=== PATIENT | female | born 1980 | race American Indian/Alaskan Native ===

== ENCOUNTER 2019-04-18 11:40 | Observation (INO) | payer MEDICAID ==
--- NOTE | 2019-04-18 14:39 | Ultrasound Report ---
PROCEDURE: US OB LIMITED TECHNIQUE: Limited OB ultrasound was performed. HISTORY: nrnst, steve COMPARISONS: None. FINDINGS: A single live intrauterine fetus is present in cephalic presentation. cardiac activity was dete cted at 135 bpm. Amniotic fluid index is 7.4 cm. IMPRESSION: Amniotic fluid index of 7.4 cm. This document is electronically signed by Jacinda Garay., Apr 18 2019 02:37:42 PM ET
--- NOTE | 2019-04-18 14:41 | Ultrasound Report ---
PROCEDURE: US OB BPP WO NON-STRESS TECHNIQUE: Biophysical profile was performed. HISTORY: nrnst COMPARISONS: None. FINDINGS: Normal biophysical profile score of 8 out of 8 was noted. Scores of 2 out of 2 were given for b reathing movements, movements, posture and tone and qualitative amniotic fluid volume. Fe santiago heart rate was detected at 137 bpm. IMPRESSION: Normal biophysical profile. This document is electronically signed by Jacinda Garay., Apr 18 2019 02:39:04 PM ET
[2019-04-18] MEDS ORDERED: LACTATED RINGERS 500 ML IV ONE ×2 (15:08→16:00)
--- NOTE | 2019-04-18 15:21 | Event Note ---
Date: 04/18/19 Pt sent from office due to non reactive nst in the office. There were several episodes of bp in the severe range. Will admit at this time 24hr urine collection, BMX, MgSO4 for neuro protection. BP currently is in normal range. Will con't to monitor at this time.
[2019-04-18 15:56] LABS: Bacteria,Urine 1+ /HPF (Negative); Bilirubin,Urine NEG (Negative); Blood,Urine SM (Negative); Color,Urine Straw (Yellow); Protein,Urine <15 mg/dL mg/dL (Negative); Urobilinogen,Urine < 2.0 mg/dL (<2.0)
[2019-04-18 17:43] LABS: Hemoglobin 10.7 gm/dl (10.1-14.3); Mean Corpuscular HGB Conc 34 % (30-34); Mean Corpuscular Volume 92 fl (79-97); Platelet Count 289 K/mm3 (140-440); Red Blood Count 3.46 M/mm3 (3.65-5.03); Red Cell Distribution Width 14.5 % (13.2-15.2)
[2019-04-18] MEDS: MAGNESIUM SULFATE 40GM/1000ML 40 GM/1,000 ML BAG IV SCH (17:50)
[2019-04-18] MEDS: CELESTONE SOLUSPAN IM SCH (17:55)
[2019-04-18 17:59] LABS: Alanine Aminotransferase 17 units/L (7-56)
[2019-04-18 19:31] LABS: Uric Acid 3.6 mg/dL (3.5-7.6)
[2019-04-18] MEDS ORDERED: APRESOLINE IV ONE (20:06)
[2019-04-18] MEDS: NORMODYNE PO SCH (21:37)
--- NOTE | 2019-04-18 22:29 | History and Physical Report ---
History of Present Illness Date of examination: 04/18/19 Date of admission: 04/18/19 17:35 Chief complaint: sent from office d/t NRNST, order from Dr. Thomas for BPP ARTI. History of present illness: Menstrual History Regularity: regular Duration: 7 LMP: 08/28/2018 LMP reliability: month known LMP character: normal test type: urine test Date: 10/17/2018 BC at conception: none Planned ? no EDC Calculations LMP: 06/04/2019 EDC Confirmation: 06/04/2019 Gestational Age: 7 1/7 weeks Past History : 5 Term Births: 3 Living Children: 2 Para: 3 Prev : 1 Aborta: 1 Elect. Ab: 0 Spont. Ab: 1 Ectopics: 0 # 1 Delivery date: 04/27/2007 Weeks Gestation: 37.6 Delivery type: Delivery location: [facility] Sex: Male weight: 4-12 Name: Comments: Dextrocardia, 2 surgeries- passed 8 months # 2 Delivery date: 06/14/2008 Weeks Gestation: 38 Delivery type: Delivery location: [facility] Sex: Female weight: 5-2 Name: # 3 Delivery date: 10/2014 Weeks Gestation: early Delivery type: SAB Comments: cytotec at home # 4 Delivery date: 03/25/2016 Weeks Gestation: 37 Delivery type: Anesthesia type: epidural Delivery location: [facility] Sex: male Comments: pre-eclampsia/eclampsia Past Medical History: HTN- on meds Past Surgical History: 2015 Past Medical History Surgery (Non-dye tank tender): 2016 Abnormal PAP: positive, > 5 years ago 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 Patient has been counseled to quit. Infection History Hx of STD: none HIV Risk Eval: low risk Hepatitis B Risk Eval: low risk Personal hx. of genital herpes: yes Partner hx. of genital herpes: no Rash, Viral, or Febrile illness since last LMP? no Varicella/Chicken Pox Status: Previous Disease Genetic History ADVANCED MATERNAL AGE Congenital Heart Defect: Mom: no Dad: no Oralia Disease: Mom: no Dad: no Thalassemia Mom: no Dad: no Neural Tube Defect Mom: no Dad: no Down's Syndrome Mom: no Dad: no Vinicio-Sachs Mom: no Dad: no Sickle Cell Disease/Trait Mom: no Dad: no Hemophilia Mom: no Dad: no Muscular Dystrophy Mom: no Dad: no Cystic Fibrosis Mom: no Dad: no Cunningham Chorea Mom: no Dad: no Mental Retardation Mom: no Dad: no Fragile X Mom: no Dad: no Other Genetic/Chromosomal Disorder Mom: no Dad: no Child w/other defect Mom: no Dad: no Enviromental Exposures Xray Exposure: no Medication, drug, or alcohol use since LMP: no Chemical/Other Exposure: no Exposure to Cat Liter: no Hx of Parvovirus (Fifth Disease): no Occupational Exposure to Children: none Active Medications (reviewed today): PROCARDIA XL 30 MG ORAL TABLET EXTENDED RELEASE 24 HOUR (NIFEDIPINE) one po q day LABETALOL HCL 300 MG ORAL TABS (LABETALOL HCL) () one po bid PRE-CHRISTIANO TABS ( [id number]) T1 PO QD Current Allergies (reviewed today): No known allergies Past History Past Medical History: other (see HPI) Past Surgical History: other (see HPI) 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) Family/Genetic History: other (see HPI) Social history: other (see HPI) - Obstetrical History Expected Date of Delivery: 06/04/19 Actual Gestation: 33 Week(s) 3 Day(s) : 5 Para: 3 Medications and Allergies Allergies Allergy/AdvReac Type Severity Reaction Status Date / Time No Known Allergies Allergy Verified 02/26/16 11:46 Home Medications Medication Instructions Recorded Confirmed Last Taken Type Labetalol HCl 200 mg PO BID 02/26/16 03/23/16 03/23/16 07:30 History valACYclovir [Valtrex] 500 mg PO QDAY 03/23/16 03/23/16 03/22/16 22:30 History Ibuprofen [Motrin] 800 mg PO Q8HR PRN #30 tablet 03/25/16 Unknown Rx Lidocain2.5%/Prilocai2.5% [Emla] 1 applic TP ONCE #1 tube 03/25/16 Unknown Rx oxyCODONE /ACETAMINOPHEN [Percocet 2 tab PO Q4HR PRN #30 tab 03/25/16 Unknown Rx 5/325] Labetalol [Labetalol 200mg TAB] 300 mg PO BID #60 tablet 03/28/16 Unknown Rx Active Meds: Active Medications Betamethasone Acet/Betameth SodPhos (Celestone Soluspan) 12 mg IM Q24H [facility] Stop: 04/19/19 17:01 Last Admin: 04/18/19 17:55 Dose: 12 mg Documented by: Magnesium Sulfate (Magnesium Sulfate 40gm/1000ml) 40 gm in 1,000 mls @ 50 mls/ hr IV DIRECT ERNESTO Last Admin: 04/18/19 17:50 Dose: 2 gm/hr, 50 mls/hr Documented by: Labetalol HCl (Normodyne) 600 mg PO BID [facility] Last Admin: 04/18/19 21:37 Dose: 600 mg Documented by: Review of Systems All systems: negative - Vital Signs Vital signs: Vital Signs Pulse BP 82 131/93 04/18/19 12:05 04/18/19 12:05 Temp Pulse Resp BP Pulse Ox 97.2 F L 105 H 18 165/79 98 04/18/19 19:15 04/18/19 22:23 04/18/19 19:15 04/18/19 22:13 04/18/19 22:23 Results Result Diagrams: 04/18/19 16:44 04/18/19 16:44 Abnormal lab results 04/18/19 04/18/19 04/18/19 Range/Units 15:30 16:44 16:44 RBC 3.46 L (3.65-5.03) M/mm3 Creatinine 0.5 L (0.7-1.2) mg/dL Magnesium (1.7-2.3) mg/dL Urine WBC (Auto) 9.0 H (0.0-6.0) /HPF 04/18/19 Range/Units 16:44 RBC (3.65-5.03) M/mm3 Creatinine (0.7-1.2) mg/dL Magnesium 1.50 L (1.7-2.3) mg/dL Urine WBC (Auto) (0.0-6.0) /HPF All other labs normal. Assessment and Plan Patient sent from office d/t NRNST for BPP ARTI US. Elevated BPs noted in triage. Dr. Thomas aware, orders for PIH labs, 24 hr urine, mag, steroids. Will continue to monitor.
[2019-04-19] MEDS ORDERED: LACTATED RINGERS 1,000 ML ONE (06:33)
--- NOTE | 2019-04-19 07:20 | Progress Note ---
Assessment and Plan - Patient Problems (1) 33 weeks gestation of Onset Date: ~04/19/19 Current Visit: Yes Status: Acute Plan to address problem: pt resting no c/o voiced 130/70-80 24hr urine ongoing Will complete today 1440. BMZ second dose due @ 1915 MGSO4 2gm/hr Will continue POC. aware Close observation of status (2) Antepartum non-reassuring heart rate or rhythm affecting care of mother Onset Date: ~04/18/19 Current Visit: Yes Status: Acute Plan to address problem: Non-reactive NST in office Pt sent to L&D for continued monitoring and assessment. Subjective - Subjective Date of service: 04/19/19 (pt awake Pt makes observation that her BPs go up when she eats) Principal diagnosis: [id number] Nonreassuring testing in office; CHtn; Prev C/S; GBS+ Patient reports: movement normal Objective - Vital Signs Vital Signs: Vital Signs - 12hr 04/18/19 04/18/19 04/18/19 19:28 19:43 19:58 Temperature Pulse Rate 99 H 104 H Respiratory Rate Blood Pressure 154/86 145/71 158/76 O2 Sat by Pulse Oximetry 04/18/19 04/18/19 04/18/19 20:02 20:04 20:06 Temperature Pulse Rate 107 H 105 H 102 H Respiratory Rate Blood Pressure 173/75 165/84 O2 Sat by Pulse 98 92 Oximetry 04/18/19 04/18/19 04/18/19 20:07 20:12 20:17 Temperature Pulse Rate 109 H 109 H 107 H Respiratory Rate Blood Pressure O2 Sat by Pulse 99 100 100 Oximetry 04/18/19 04/18/19 04/18/19 20:22 20:23 20:27 Temperature Pulse Rate 103 H 30 L 108 H Respiratory Rate Blood Pressure O2 Sat by Pulse 100 84 100 Oximetry 04/18/19 04/18/19 04/18/19 20:28 20:32 20:37 Temperature Pulse Rate 103 H 102 H 114 H Respiratory Rate Blood Pressure 166/81 O2 Sat by Pulse 99 97 Oximetry 04/18/19 04/18/19 04/18/19 20:42 20:43 20:47 Temperature Pulse Rate 113 H 101 H 107 H Respiratory Rate Blood Pressure 160/72 O2 Sat by Pulse 97 97 Oximetry 04/18/19 04/18/19 04/18/19 20:52 20:53 20:58 Temperature Pulse Rate 60 106 H 107 H Respiratory Rate Blood Pressure O2 Sat by Pulse 76 L 99 98 Oximetry 04/18/19 04/18/19 04/18/19 20:59 21:03 21:08 Temperature Pulse Rate 105 H 102 H 109 H Respiratory Rate Blood Pressure 171/91 O2 Sat by Pulse 98 96 Oximetry 04/18/19 04/18/19 04/18/19 21:13 21:18 21:23 Temperature Pulse Rate 111 H 104 H 104 H Respiratory Rate Blood Pressure 168/88 O2 Sat by Pulse 97 97 96 Oximetry 04/18/19 04/18/19 04/18/19 21:28 21:31 21:33 Temperature Pulse Rate 107 H 102 H 111 H Respiratory Rate Blood Pressure 170/87 O2 Sat by Pulse 96 92 97 Oximetry 04/18/19 04/18/19 04/18/19 21:37 21:38 21:43 Temperature Pulse Rate 103 H 108 H 110 H Respiratory Rate Blood Pressure 170/87 166/80 O2 Sat by Pulse 98 98 Oximetry 04/18/19 04/18/19 04/18/19 21:48 21:53 21:58 Temperature Pulse Rate 103 H 100 H 103 H Respiratory Rate Blood Pressure 160/78 O2 Sat by Pulse 97 98 97 Oximetry 04/18/19 04/18/19 04/18/19 22:03 22:07 22:08 Temperature Pulse Rate 104 H 105 H 107 H Respiratory Rate Blood Pressure O2 Sat by Pulse 97 78 L 97 Oximetry 04/18/19 04/18/19 04/18/19 22:13 22:18 22:19 Temperature Pulse Rate 105 H 109 H 114 H Respiratory Rate Blood Pressure 165/79 O2 Sat by Pulse 96 98 0 L Oximetry 04/18/19 04/18/19 04/18/19 22:23 22:28 22:33 Temperature Pulse Rate 105 H 102 H 104 H Respiratory Rate Blood Pressure 144/69 O2 Sat by Pulse 98 96 98 Oximetry 04/18/19 04/18/19 04/18/19 22:34 22:38 22:43 Temperature Pulse Rate 110 H 99 H 99 H Respiratory Rate Blood Pressure 136/71 O2 Sat by Pulse 93 98 96 Oximetry 04/18/19 04/18/19 04/18/19 22:44 22:48 22:53 Temperature 98.4 F Pulse Rate 97 H 99 H Respiratory 20 Rate Blood Pressure O2 Sat by Pulse 98 98 Oximetry 04/18/19 04/18/19 04/18/19 22:58 23:03 23:08 Temperature Pulse Rate 108 H 97 H 97 H Respiratory Rate Blood Pressure 130/63 O2 Sat by Pulse 97 97 97 Oximetry 04/18/19 04/18/19 04/18/19 23:13 23:18 23:23 Temperature Pulse Rate 101 H 97 H 95 H Respiratory Rate Blood Pressure 135/82 O2 Sat by Pulse 95 97 96 Oximetry 04/18/19 04/18/19 04/18/19 23:28 23:33 23:38 Temperature Pulse Rate 98 H 91 H 92 H Respiratory Rate Blood Pressure 132/80 O2 Sat by Pulse 96 97 97 Oximetry 04/18/19 04/18/19 04/18/19 23:43 23:48 23:53 Temperature Pulse Rate 95 H 93 H 91 H Respiratory Rate Blood Pressure 130/83 O2 Sat by Pulse 97 97 96 Oximetry 04/18/19 04/18/19 04/19/19 23:56 23:58 00:03 Temperature Pulse Rate 95 H 88 91 H Respiratory Rate Blood Pressure 131/84 O2 Sat by Pulse 94 95 96 Oximetry 04/19/19 04/19/19 04/19/19 00:08 00:10 00:13 Temperature Pulse Rate 91 H 90 88 Respiratory Rate Blood Pressure O2 Sat by Pulse 94 93 94 Oximetry 04/19/19 04/19/19 04/19/19 00:18 00:23 00:24 Temperature Pulse Rate 89 89 86 Respiratory Rate Blood Pressure O2 Sat by Pulse 96 94 94 Oximetry 04/19/19 04/19/19 04/19/19 00:28 00:30 00:33 Temperature Pulse Rate 85 93 H 85 Respiratory Rate Blood Pressure O2 Sat by Pulse 96 90 97 Oximetry 04/19/19 04/19/19 04/19/19 00:35 00:38 00:41 Temperature Pulse Rate 92 H 90 99 H Respiratory Rate Blood Pressure O2 Sat by Pulse 88 91 92 Oximetry 04/19/19 04/19/19 04/19/19 00:43 00:47 00:48 Temperature Pulse Rate 90 93 H 96 H Respiratory Rate Blood Pressure O2 Sat by Pulse 98 93 95 Oximetry 04/19/19 04/19/19 04/19/19 00:53 00:58 01:12 Temperature Pulse Rate 88 100 H 94 H Respiratory Rate Blood Pressure 124/67 O2 Sat by Pulse 95 96 Oximetry 04/19/19 04/19/19 04/19/19 01:13 02:12 03:12 Temperature Pulse Rate 95 H 90 99 H Respiratory Rate Blood Pressure 119/59 130/71 O2 Sat by Pulse 97 Oximetry 04/19/19 04/19/19 04/19/19 03:35 05:20 06:46 Temperature 98.2 F Pulse Rate 85 90 Respiratory 20 Rate Blood Pressure 139/89 O2 Sat by Pulse 98 Oximetry 04/19/19 04/19/19 04/19/19 06:54 06:59 07:01 Temperature Pulse Rate 87 89 92 H Respiratory Rate Blood Pressure O2 Sat by Pulse 99 96 94 Oximetry 04/19/19 04/19/19 07:04 07:09 Temperature Pulse Rate 85 91 H Respiratory Rate Blood Pressure O2 Sat by Pulse 96 96 Oximetry - Exam Breasts: deferred Cardiovascular: Regular rate Lungs: Normal air movement Abdomen: Present: normal appearance, soft, normal bowel sounds. Absent: distention, tenderness Uterus: Present: normal FHR: auscultation normal, category 1 Uterine Contraction Monitor Mode: External Uterine Contraction Pattern: Irregular (mild) Uterine Tone Measurement Phase: Resting Uterine Contraction Intensity: Mild Extremities: edema Deep Tendon Reflex Grade: Normal +2 - Labs Labs: Abnormal Labs 04/18/19 04/18/19 04/18/19 15:30 16:44 16:44 RBC 3.46 L Creatinine 0.5 L Magnesium Urine WBC (Auto) 9.0 H 04/18/19 04/19/19 04/19/19 16:44 00:18 05:37 RBC Creatinine Magnesium 1.50 L 3.80 H 4.50 H Urine WBC (Auto) Laboratory Results - last 24 hr 04/18/19 04/18/19 04/18/19 15:30 16:44 16:44 WBC 10.7 RBC 3.46 L Hgb 10.7 Hct 32.0 MCV 92 MCH 31 MCHC 34 RDW 14.5 Plt Count 289 Creatinine 0.5 L Estimated GFR > 60 Uric Acid 3.6 Magnesium ALT 17 Lactate Dehydrogenase 179 Urine Color Straw Urine Turbidity Clear Urine pH 7.0 Ur Specific [place] 1.008 Urine Protein <15 mg/dl Urine Glucose (UA) Neg Urine Ketones Neg Urine Blood Sm Urine Nitrite Neg Urine Bilirubin Neg Urine Urobilinogen < 2.0 Ur Leukocyte Esterase Mod Urine WBC (Auto) 9.0 H Urine RBC (Auto) 3.0 U Epithel Cells (Auto) 1.0 Urine Bacteria (Auto) 1+ Blood Type Antibody Screen TAI Antibody Screen 04/18/19 04/18/19 04/19/19 16:44 17:30 00:18 WBC RBC Hgb Hct MCV MCH MCHC RDW Plt Count Creatinine Estimated GFR Uric Acid Magnesium 1.50 L 3.80 H ALT Lactate Dehydrogenase Urine Color Urine Turbidity Urine pH Ur Specific [place] Urine Protein Urine Glucose (UA) Urine Ketones Urine Blood Urine Nitrite Urine Bilirubin Urine Urobilinogen Ur Leukocyte Esterase Urine WBC (Auto) Urine RBC (Auto) U Epithel Cells (Auto) Urine Bacteria (Auto) Blood Type O POSITIVE Antibody Screen TNR TAI Antibody Screen Negative 04/19/19 05:37 WBC RBC Hgb Hct MCV MCH MCHC RDW Plt Count Creatinine Estimated GFR Uric Acid Magnesium 4.50 H ALT Lactate Dehydrogenase Urine Color Urine Turbidity Urine pH Ur Specific [place] Urine Protein Urine Glucose (UA) Urine Ketones Urine Blood Urine Nitrite Urine Bilirubin Urine Urobilinogen Ur Leukocyte Esterase Urine WBC (Auto) Urine RBC (Auto) U Epithel Cells (Auto) Urine Bacteria (Auto) Blood Type Antibody Screen TAI Antibody Screen
[2019-04-19 08:37] LABS: Bilirubin,Urine NEG (Negative); Blood,Urine LG (Negative); Color,Urine Straw (Yellow); Mucus,Urine FEW /HPF; Protein,Urine <15 mg/dL mg/dL (Negative); Urobilinogen,Urine < 2.0 mg/dL (<2.0)
[2019-04-19 08:38] LABS: RBC,Urine < 1.0 /HPF (0.0-6.0)
[2019-04-19] MEDS: NORMODYNE PO SCH (10:15)
[2019-04-19] MEDS: MAGNESIUM SULFATE 40GM/1000ML 40 GM/1,000 ML BAG IV SCH (11:18)
[2019-04-19] MEDS ORDERED: TYLENOL PO PRN (12:05)
[2019-04-19] MEDS ORDERED: TYLENOL ONE (12:15)
[2019-04-19] MEDS: CELESTONE SOLUSPAN IM SCH (18:01)
[2019-04-19 20:09] VITALS: BP 155/93
--- NOTE | 2019-04-19 20:10 | Discharge Summary ---
Providers - Providers Date of Admission: 04/18/19 17:35 Date of discharge: 04/19/19 (pt d/c home after BP eval) Attending physician: CONNIE LEDESMA Primary care physician: CONNIE LEDESMA Hospitalization Condition: Good Pertinent studies: wasted 24hr urine Pt will collect at home and return to Triage Tuesday Disposition: DC-01 TO HOME OR SELFCARE - Discharge Diagnoses (1) 33 weeks gestation of Status: Acute Comment: Keep next scheduled appt (2) Antepartum non-reassuring heart rate or rhythm affecting care of mother Status: Acute Comment: All testing WNL Reactive NST prior to d/c Core Measure Documentation - Palliative Care Palliative Care/ Comfort Measures: Not Applicable - Core Measures Any of the following diagnoses?: none - VTE Discharge Requirements Deep Vein Thrombosis/Pulmonary Embolism Present on Admission: No Has pt received <5 days of overlap therapy or INR<2.0: No Anticoagulant overlap therapy prescribed at discharge: No Contraindication No Overlap Therapy order at DC: Not Indicated - Acute [place] Discharge Requirements Aspirin at discharge: No Reason for no aspirin on DC: Medical contraindication DUNCAN/ARB for LVSD if EF <40%: Not Applicable Reason for no DUNCAN/ARB: Medical contraindication Beta jim at discharge: No Reason for no beta jim on DC: Medical contraindication Statin for LDL = or >100 mg/dl on DC: Not Applicable Reason for no statin on DC: Medical contraindication - Heart Failure Discharge Requirements DUNCAN/ARB for LVSD if EF <40%: Not Applicable Reason for no DUNCAN/ARB: Medical contraindication Beta jim at discharge: No Reason for no beta jim on DC: Medical contraindication - Stroke Discharge Requirements Statin for LDL = or >70 mg/dl on DC: Not Applicable Reason for no statin on DC: Not Indicated Anticoag for atrial fib/atrial flutter: Not Applicable Reason for no anticoag for AF/F on DC: Not Indicated Antithrombotic for ischemic stroke: No Reason for no antithrombotic on DC: Not Indicated Exam - Constitutional Vitals: Temp Pulse Resp BP Pulse Ox 98.7 F 88 32 H 162/90 99 04/19/19 16:50 04/19/19 19:50 04/19/19 16:50 04/19/19 19:50 04/19/19 18:20 General appearance: Present: no acute distress, well-nourished - EENT Eyes: Present: PERRL ENT: hearing intact, clear oral mucosa - Neck Neck: Present: supple, normal ROM - Respiratory Respiratory effort: normal Respiratory: bilateral: CTA - Cardiovascular Heart Sounds: Present: S1 & S2. Absent: rub, click - Extremities Extremities: pulses symmetrical, No edema Peripheral Pulses: within normal limits - Abdominal General gastrointestinal: Present: soft, non-tender, non-distended, normal bowel sounds Female genitourinary: Present: normal - Integumentary Integumentary: Present: clear, warm, dry - Musculoskeletal Musculoskeletal: gait normal, strength equal bilaterally - Psychiatric Psychiatric: appropriate mood/affect, intact judgment & insight - Neurologic Neurologic: CNII-XII intact, moves all extremities Plan Activity: advance as tolerated Diet: low salt Follow up with: CONNIE LEDESMA MD [Primary Care Provider] - 04/21/19 9:00 am (Return 24hr urine to Triage on Tuesday for labs, blood pressure check, and NST Call [phone] with any headache, blurred vision, chest pain.) Prescriptions: Terconazole [Terazol 7] 7 applic VG QHS 7 Days #7 cream.[email or web address]
[2019-04-21 16:25] LABS: Creatinine,Urine 39.3 mg/dL (0.1-20.0)
== END 2019-04-19 09:00 | disposition home or self-care (01) ==
LOC: TRG 11:40 → LD 17:35
PROVIDERS: ADMIT Obstetrics & Gynecology; ATTEND Obstetrics & Gynecology
DX: O36.8330 Maternal care for abnormalities of the fetal heart rate or rhythm, third trimester, not applicable or unspecified (principal); Z3A.33 33 weeks gestation of pregnancy; Z87.891 Personal history of nicotine dependence; Z98.890 Other specified postprocedural states
CPT/HCPCS: 36415; 76815; 76819; 81001; 82565; 82570; 82575; 83615; 83735; 84460; 84550; 85027; 86850; 86900; 86901; 87086; 96365; 96366; 96372; 96375; G0378; J0360; J0702; J3475; J7120

== ENCOUNTER 2019-04-21 11:37 | Outpatient (CLI) | payer MEDICAID ==
[2019-04-21 16:09] VITALS: BP 137/87
--- NOTE | 2019-04-21 16:30 | Ultrasound Report ---
PROCEDURE: Ultrasound biophysical profile without nonstress test. TECHNIQUE: Sonographic evaluation for breathing, movement, tone, and amniotic flui d volume was performed. HISTORY: Nonreactive nonstress test. COMPARISONS: None. FINDINGS: FETUS Amniotic fluid volume 2 . breathin . movement: 2 . tone: 2 . Score: 8 of 8 . IMPRESSION: Normal biophysical profile . This document is electronically signed by Adeel Nunez MD., April 21 2019 05:28:54 PM ET
== END 2019-04-21 16:15 | disposition home or self-care (01) ==
LOC: TRG 11:37
PROVIDERS: ATTEND Obstetrics & Gynecology
DX: O47.03 False labor before 37 completed weeks of gestation, third trimester (principal); O10.013 Pre-existing essential hypertension complicating pregnancy, third trimester; Z3A.33 33 weeks gestation of pregnancy
CPT/HCPCS: 59025; 76819; 84156

== ENCOUNTER 2019-04-27 13:06 | Outpatient (CLI) | payer MEDICAID ==
[2019-04-27] MEDS ORDERED: LACTATED RINGERS 500 ML IV ONE (14:00)
[2019-04-27 14:27] LABS: Bilirubin,Urine NEG (Negative); Blood,Urine SM (Negative); Color,Urine Yellow (Yellow); Protein,Urine <15 mg/dL mg/dL (Negative); Urobilinogen,Urine < 2.0 mg/dL (<2.0)
[2019-04-27 14:30] LABS: Bacteria,Urine 3+ /HPF (Negative); Mucus,Urine FEW /HPF
[2019-04-27 15:01] VITALS: BP 132/88
--- NOTE | 2019-04-27 16:08 | Ultrasound Report ---
PROCEDURE: US OB LIMITED PROCEDURE: US OB BPP WO NON-STRESS TECHNIQUE: OB ultrasound for BPP and ARTI HISTORY: nrnst in office COMPARISONS: Ultrasound OB 04/21/2019 FINDINGS: LMP 08/28/2018 clinical Age : 34W 4 D LMP EDC 06/04/2019 Biophysical profile scoring 2 movement 2 tone 2 breathing 2fluid 8/8 overall score Presentation: Cephalic Activity: Monitored Cardiac motion: 155 BPM using M-mode doppler Amniotic Fluid Volume: Adequate ARTI: 14.8 cm IMPRESSION: Single viable at 34 weeks 4 days with 8/8 biophysical profile score with ARIT 14.8 cm This document is electronically signed by Mis Carroll MD., April 27 2019 04:06:19 PM ET
--- NOTE | 2019-04-27 16:08 | Ultrasound Report ---
PROCEDURE: US OB BPP WO NON-STRESS TECHNIQUE: OB ultrasound for BPP and ARTI HISTORY: nrnst in office COMPARISONS: Ultrasound OB 04/21/2019 FINDINGS: LMP 08/28/2018 clinical Age : 34W 4 D LMP EDC 06/04/2019 Biophysical profile scoring 2 movement 2 tone 2 breathing 2fluid 8/8 overall score Presentation: Cephalic Activity: Monitored Cardiac motion: 155 BPM using M-mode doppler Amniotic Fluid Volume: Adequate ARTI: 14.8 cm IMPRESSION: Single viable at 34 weeks 4 days with 8/8 biophysical profile score with ARTI 14.8 cm This document is electronically signed by Mis Carroll MD., April 27 2019 04:06:48 PM ET
== END 2019-04-27 16:26 | disposition home or self-care (01) ==
LOC: TRG 13:06
PROVIDERS: ATTEND Obstetrics & Gynecology
DX: O47.03 False labor before 37 completed weeks of gestation, third trimester (principal); Z3A.34 34 weeks gestation of pregnancy
CPT/HCPCS: 59025; 76815; 76819; 81001; 87086

== ENCOUNTER 2019-05-04 12:44 | Outpatient (CLI) | payer MEDICAID ==
[2019-05-04] MEDS ORDERED: LACTATED RINGERS 500 ML IV ONE (13:06)
[2019-05-04 14:04] LABS: Bacteria,Urine 2+ /HPF (Negative); Bilirubin,Urine NEG (Negative); Blood,Urine NEG (Negative); Color,Urine Yellow (Yellow); Mucus,Urine FEW /HPF; Protein,Urine <15 mg/dL mg/dL (Negative); Urobilinogen,Urine < 2.0 mg/dL (<2.0)
[2019-05-04 14:52] VITALS: BP 138/81
[2019-05-04 16:23] LABS: Hematocrit 32.5 % (30.3-42.9); Mean Corpuscular HGB Conc 34 % (30-34); Mean Corpuscular Volume 93 fl (79-97); Platelet Count 232 K/mm3 (140-440); Red Blood Count 3.47 M/mm3 (3.65-5.03); Red Cell Distribution Width 15.4 % (13.2-15.2)
[2019-05-04 16:39] LABS: Alanine Aminotransferase 14 units/L (7-56); Uric Acid 3.4 mg/dL (3.5-7.6)
--- NOTE | 2019-05-04 17:13 | Ultrasound Report ---
PROCEDURE: US OB BPP WO NON-STRESS TECHNIQUE: Ultrasound biophysical profile HISTORY: nrnst in office COMPARISONS: FINDINGS: Biophysical profile breathing 2. limits to Tone 2 Amniotic fluid volume 2 Total biophysical profile 06/28 cardiac activity present at 143 bpm IMPRESSION: Total biophysical profile 06/28. This document is electronically signed by Yair Lindsay MD., May 04 2019 05:11:42 PM ET
--- NOTE | 2019-05-04 17:19 | Ultrasound Report ---
PROCEDURE: US OB LIMITED TECHNIQUE: Ultrasound obstetrical transabdominal and limited HISTORY: nrnst in office COMPARISONS: FINDINGS: Single live intrauterine gestation present in cephalic presentation Amniotic fluid index is 19.1 cm cardiac activity present heart rate 1 37 bpm IMPRESSION: Single live intrauterine gestation in cephalic presentation This document is electronically signed by Yair Lindsay MD., May 04 2019 05:17:19 PM ET
== END 2019-05-04 16:46 | disposition home or self-care (01) ==
LOC: TRG 12:44
PROVIDERS: ATTEND Obstetrics & Gynecology
DX: O47.03 False labor before 37 completed weeks of gestation, third trimester (principal); O10.013 Pre-existing essential hypertension complicating pregnancy, third trimester; Z3A.35 35 weeks gestation of pregnancy
CPT/HCPCS: 36415; 59025; 76815; 76819; 81001; 82565; 83615; 84450; 84460; 84550; 85027; 87086

== ENCOUNTER 2019-05-22 13:40 | Inpatient (IN) | payer MEDICAID ==
[2019-05-22] MEDS ORDERED: BICITRA PO ONE (13:46)
[2019-05-22] MEDS ORDERED: REGLAN IV ONE (13:46)
[2019-05-22] MEDS ORDERED: PEPCID IV ONE (13:46)
--- NOTE | 2019-05-22 13:55 | History and Physical Report ---
History of Present Illness Date of examination: 05/22/19 Date of admission: 05/22/19 13:40 History of present illness: EDC Calculations LMP: 06/04/2019 EDC Confirmation: 06/04/2019 Gestational Age: 7 1/7 weeks Past History : 5 Term Births: 3 Living Children: 2 Para: 3 Prev : 1 Aborta: 1 Elect. Ab: 0 Spont. Ab: 1 Ectopics: 0 # 1 Delivery date: 04/27/2007 Weeks Gestation: 37.6 Delivery type: Delivery location: [facility] Sex: Male weight: 4-12 Name: Comments: Dextrocardia, 2 surgeries- passed 8 months # 2 Delivery date: 06/14/2008 Weeks Gestation: 38 Delivery type: Delivery location: [facility] Infant Sex: Female weight: 5-2 Name: # 3 Delivery date: 10/2014 Weeks Gestation: early Delivery type: SAB Comments: cytotec at home # 4 Delivery date: 03/25/2016 Weeks Gestation: 37 Delivery type: Anesthesia type: epidural Delivery location: [facility] Sex: male Comments: pre-eclampsia/eclampsia Past Medical History: HTN- on meds Past Surgical History: 2015 Past Medical History 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 Patient has been counseled to quit. Infection History Hx of STD: none HIV Risk Eval: low risk Hepatitis B Risk Eval: low risk Personal hx. of genital herpes: yes Partner hx. of genital herpes: no Rash, Viral, or Febrile illness since last LMP? no Varicella/Chicken Pox Status: Previous Disease Genetic History ADVANCED MATERNAL AGE Congenital Heart Defect: Mom: no Dad: no Oralia Disease: Mom: no Dad: no Thalassemia Mom: no Dad: no Neural Tube Defect Mom: no Dad: no Down's Syndrome Mom: no Dad: no Vinicio-Sachs Mom: no Dad: no Sickle Cell Disease/Trait Mom: no Dad: no Hemophilia Mom: no Dad: no Muscular Dystrophy Mom: no Dad: no Cystic Fibrosis Mom: no Dad: no Bullitt Chorea Mom: no Dad: no Mental Retardation Mom: no Dad: no Fragile X Mom: no Dad: no Other Genetic/Chromosomal Disorder Mom: no Dad: no Child w/other defect Mom: no Dad: no Enviromental Exposures Xray Exposure: no Medication, drug, or alcohol use since LMP: no Chemical/Other Exposure: no Exposure to Cat Liter: no Hx of Parvovirus (Fifth Disease): no Occupational Exposure to Children: none Active Medications (reviewed today): LABETALOL HCL 300 MG ORAL TABS (LABETALOL HCL) () one po bid PRE- TABS ( [id number]) T1 PO QD Current Allergies (reviewed today): No known allergies Past History - Obstetrical History Expected Date of Delivery: 06/04/19 Actual Gestation: 38 Week(s) 1 Day(s) : 5 Medications and Allergies Allergies Allergy/AdvReac Type Severity Reaction Status Date / Time No Known Allergies Allergy Verified 05/22/19 13:52 Home Medications Medication Instructions Recorded Confirmed Last Taken Type Labetalol HCl [Labetalol 300mg TAB] 2 tab PO BID 04/21/19 04/21/19 04/21/19 08:00 History 1 Active Meds: Active Medications Citric Acid/Sodium Citrate (Bicitra) 30 ml PO ONCE ONE Stop: 05/22/19 13:47 Famotidine (Pepcid) 20 mg IV ONCE ONE Stop: 05/22/19 13:47 Cefazolin Sodium (Ancef/Sterile Water 2 Gm/20 Ml) 2 gm in 20 mls @ 80 mls/hr IV PREOP NR; Protocol Oxytocin/Sodium Chloride (Pitocin/Ns 20 Unit/1000ml Drip) 20 units in 1,000 mls @ 0 mls/hr IV TITR ERNESTO Lactated Ringer's (Lactated Ringers) 1,000 mls @ 2,250 mls/hr IV PREOP ERNESTO Stop: 05/23/19 14:27 Metoclopramide HCl (Reglan) 10 mg IV ONCE ONE Stop: 05/22/19 13:47 Miscellaneous Medication (Labetalol Hcl [Labetalol 300mg Tab]) 2 tab PO BID ERNESTO - Physical Exam Breasts: Positive: deferred Lungs: Positive: Normal air movement Results Result Diagrams: 05/22/19 14:19 05/22/19 14:19 All other labs normal. Assessment and Plan Questions encouraged and answered, she voiced understanding and desires to proceed with C/S. She declines sterilization. - Patient Problems (1) 38 weeks gestation of Current Visit: Yes Status: Acute (2) growth restriction Current Visit: Yes Status: Acute (3) Maternal care due to low transverse uterine scar from previous delivery Current Visit: Yes Status: Acute (4) Elevated blood pressure affecting in third trimester, antepartum Current Visit: Yes Status: Acute (5) Essential hypertension Current Visit: Yes Status: Acute (6) BMI 40.0-44.9, adult Current Visit: Yes Status: Acute (7) Proteinuria affecting in third trimester Current Visit: Yes Status: Acute
[2019-05-22] MEDS ORDERED: ANCEF/STERILE WATER 2 GM/20 ML 2 GM/20 ML SYRINGE IV NR ×2 (14:00→14:15)
[2019-05-22] MEDS ORDERED: LACTATED RINGERS 1,000 ML IV SCH ×2 (14:00→17:00)
[2019-05-22] MEDS ORDERED: PITOCin/NS 20 UNIT/1000ML DRIP 20 UNITS/1,000 ML BAG IV SCH ×2 (14:00→17:00)
[2019-05-22] MEDS ORDERED: REGLAN IV NR (14:15)
[2019-05-22] MEDS ORDERED: PEPCID IV NR (14:15)
[2019-05-22] MEDS ORDERED: BICITRA PO NR (14:15)
[2019-05-22 14:39] LABS: Hematocrit 32.9 % (30.3-42.9); Mean Corpuscular HGB Conc 34 % (30-34); Mean Corpuscular Volume 93 fl (79-97); Platelet Count 281 K/mm3 (140-440); Red Blood Count 3.53 M/mm3 (3.65-5.03); Red Cell Distribution Width 15.6 % (13.2-15.2)
--- NOTE | 2019-05-22 14:45 | Anesthesia Consultation ---
Anesthesia Consult and Med Hx Date of service: 05/22/19 - Airway Anesthetic Teeth Evaluation: Good ROM Head & Neck: Adequate Mental/Hyoid Distance: Adequate Mallampati Class: Class II Intubation Access Assessment: Good - Pulmonary Exam CTA: Yes - Cardiac Exam Cardiac Exam: RRR - Pre-Operative Health Status ASA Pre-Surgery Classification: ASA2 Proposed Anesthetic Plan: Spinal - Pulmonary Hx Asthma: No COPD: No Hx Pneumonia: No - Cardiovascular System Hx Hypertension: Yes - Central Nervous System Hx Seizures: No Hx Psychiatric Problems: No - Endocrine Hx Renal Disease: No Hx End Stage Renal Disease: No Hx Hypothyroidism: No Hx Hyperthyroidism: No - Hematic Hx Anemia: No Hx Sickle Cell Disease: No - Other Systems Hx Alcohol Use: No
--- NOTE | 2019-05-22 14:46 | Anesthesia Day of Surgery ---
Anesthesia Day of Surgery - Day of Surgery Patient Examined: Yes Patient H&P Reviewed: Yes Patient is NPO: Yes Beta Blockers: Yes
[2019-05-22] MEDS ORDERED: ZOFRAN ONE (15:01)
[2019-05-22] MEDS ORDERED: SUBLIMAZE ONE (15:02)
[2019-05-22 15:06] LABS: Alanine Aminotransferase 14 units/L (7-56); Uric Acid 3.6 mg/dL (3.5-7.6)
[2019-05-22] MEDS ORDERED: NACL 0.9% IR ONE (15:27)
[2019-05-22] MEDS ORDERED: WATER FOR IRRIG STERILE IR ONE (15:27)
[2019-05-22] MEDS ORDERED: KETALAR ONE (15:48)
[2019-05-22] MEDS ORDERED: VERSED ONE (15:52)
[2019-05-22] MEDS ORDERED: DILAUDID ONE (15:55)
[2019-05-22] MEDS ORDERED: NARCAN 0.4 MG/1 ML IV PRN ×2 (16:30→16:39)
[2019-05-22] MEDS ORDERED: TUCKS PAD TP PRN (16:30)
[2019-05-22] MEDS ORDERED: MAGNESIUM SULFATE 4GM/100ML 4 GM/100 ML BAG IV ONE (16:30)
[2019-05-22] MEDS ORDERED: LANSINOH TP PRN (16:30)
[2019-05-22] MEDS ORDERED: XYLOCAINE MPF 2% ONE (16:31)
[2019-05-22] MEDS ORDERED: MARCAINE 0.5% INFILTRATI ONE (16:31)
[2019-05-22] MEDS ORDERED: PHENERGAN PO PRN (16:39)
[2019-05-22] MEDS ORDERED: PHENERGAN PR PRN (16:39)
[2019-05-22] MEDS ORDERED: DILAUDID IV PRN ×2 (16:39→19:59)
[2019-05-22] MEDS ORDERED: ZOFRAN IV PRN ×2 (16:39→16:42)
[2019-05-22] MEDS ORDERED: MORPHINE IV PRN ×3 (16:39→16:42)
--- NOTE | 2019-05-22 16:39 | Post Anesthesia Evaluation ---
- Post Anesthesia Evaluation Patient Participated: Yes Airway Patent: Yes Stable Respiratory Function: Yes Nausea/Vomiting: No Temp > 96.8F: Yes Pain Manageable: Yes Adequeate Hydration: Yes Anesthesia Complications: No Block Receding Appropriately: Yes Patient on Ventilator: No
[2019-05-22] MEDS ORDERED: MYLICON PO PRN (16:42)
[2019-05-22] MEDS ORDERED: TYLENOL PR PRN (16:42)
[2019-05-22] MEDS ORDERED: TYLENOL PO PRN (16:42)
[2019-05-22] MEDS ORDERED: MAGNESIUM SULFATE 40GM/1000ML 40 GM/1,000 ML BAG IV ONE (16:57)
[2019-05-22] MEDS ORDERED: MAGNESIUM SULFATE 40GM/1000ML 40 GM/1,000 ML BAG IV SCH (17:00)
[2019-05-22] MEDS ORDERED: SODIUM CHLORIDE FLUSH SYRINGE 10 ML IV NR ×2 (17:00)
[2019-05-22] MEDS ORDERED: D5LR 1,000 ML IV SCH (17:00)
--- NOTE | 2019-05-22 17:00 | Operative Report ---
Operative Report Operative Report: Date: 05/22/2019 Preoperative diagnosis: 1. Intrauterine at 38 weeks gestation 2. Chronic hypertension uncontrolled blood pressures presents for delivery as recommended by the perinatologist 3. Intrauterine growth restriction 4. Body mass index 43 5. Previous delivery size repeat 6. Proteinuria Postoperative diagnosis: 1. Intrauterine at 38 weeks gestation 2. Chronic hypertension uncontrolled blood pressures presents for delivery as recommended by the perinatologist 3. Intrauterine growth restriction 4. Body mass index 43 5. Previous delivery size repeat 6. Proteinuria 7. Adhesions Procedure: 1. Low uterine transverse incision for delivery 2. Lysis of adhesions Surgeon: Florecita Sigala MD Oil Spot Washer: Lara Alamo CST Anesthesia: Epidural Anesthesiologist: Dr. Estes Estimated blood loss: 500 mL Urine out: 50 mL Findings: Live born female . Weight 5 lbs. 11 oz. Apgars 7 at 1 minute and 8 at 5 minutes. Procedure: After risk, benefits, complications, consequences and alternatives for this procedure were discussed with patient and consents were reviewed and signed, she was taken to the OR where epidural anesthesia was placed. She was then placed in the left lateral tilt position, and prepped and draped in the usual sterile fashion. Timeout was performed, and an appropriate level of anesthesia was noted, a Pfannenstiel incision was made and extended to the fascia which was incised and extended in the lateral directions. The overlying fascia was sharply dissected away from the underlying rectus muscles in the superior and inferior directions. The midline was entered bluntly. The uterus is deviated to the patient's right with adhesion to the anterior abdominal wall that was released. The vesicouterine fold was incised and with blunt dissection the bladder flap was created. The large Dann retractor was placed. A transverse incision was made in the lower uterine segment and extended in superiolateral direction with finger fractionation. Clear fluid was noted. The was delivered from cephalic position. Mouth and nose were bulb suctioned. Spontaneous cry and excellent tone were noted. Cord was doubly clamped and cut. The was given to /resuscitation team present. The placenta was manually extracted. The uterus was then exteriorized and cleared of any further products of conception or placental tissue. The incision was reapproximated using 0 Vicryl in a running interlocking stitch. Grossly normal uterus, tubes and ovaries were noted. Once hemostasis was noted, the uterus was allowed back into the pelvic cavity. The pelvis was irrigated with warm normal saline. Again hemostasis was noted . Tisseel applied for further hemostasis. Interceed was then placed to prevent adhesions. Then attention was turned to the rectus muscles. The rectus muscles reapproximated using 0 Vicryl in a simple interrupted stitch x 3. Once hemostasis was noted, the fascia was reapproximated using 0 Vicryl running stitch fashion. Once hemostasis was noted skin incision was reapproximated using 4-0 Vicryl on a Thang needle in a subcuticular manner. Counts were correct 3. Patient tolerated procedure well state recovery room in stable condition.
[2019-05-22 17:46] LABS: Bacteria,Urine 1+ /HPF (Negative); Bilirubin,Urine NEG (Negative); Blood,Urine MOD (Negative); Color,Urine Yellow (Yellow); Mucus,Urine FEW /HPF; Protein,Urine <15 mg/dL mg/dL (Negative); Urobilinogen,Urine < 2.0 mg/dL (<2.0)
[2019-05-22] MEDS: APRESOLINE IV PRN ×3 (20:38→21:43)
[2019-05-22] MEDS: NORMODYNE PO SCH (21:45)
[2019-05-22] MEDS ORDERED: LABETALOL HCL PO SCH (22:00)
[2019-05-22] MEDS ORDERED: NORMODYNE IV ONE ×2 (22:03→23:49)
[2019-05-22] MEDS: TORADOL IV SCH (22:04)
--- NOTE | 2019-05-22 22:26 | Progress Note ---
Assessment and Plan - Patient Problems (1) 38 weeks gestation of Current Visit: Yes Status: Acute (2) growth restriction Current Visit: Yes Status: Acute (3) Maternal care due to low transverse uterine scar from previous delivery Current Visit: Yes Status: Acute (4) Elevated blood pressure affecting in third trimester, antepartum Current Visit: Yes Status: Acute Plan to address problem: BP's noted, she's received 2 dose of hydralazine 10mg and Labetalol 20mg IV with a decrease of BP to 169/93. Continue close observation. (5) Essential hypertension Current Visit: Yes Status: Acute (6) BMI 40.0-44.9, adult Current Visit: Yes Status: Acute (7) Proteinuria affecting in third trimester Current Visit: Yes Status: Acute Subjective - Subjective Date of service: 05/22/19 Principal diagnosis: elevated BP's, DOD Interval history: EDC Calculations LMP: 06/04/2019 EDC Confirmation: 06/04/2019 Gestational Age: 7 1/7 weeks Past History : 5 Term Births: 3 Living Children: 2 Para: 3 Prev : 1 Aborta: 1 Elect. Ab: 0 Spont. Ab: 1 Ectopics: 0 # 1 Delivery date: 04/27/2007 Weeks Gestation: 37.6 Delivery type: Delivery location: [facility] Infant Sex: Male weight: 4-12 Name: Comments: Dextrocardia, 2 surgeries- passed 8 months # 2 Delivery date: 06/14/2008 Weeks Gestation: 38 Delivery type: Delivery location: [facility] Infant Sex: Female weight: 5-2 Name: # 3 Delivery date: 10/2014 Weeks Gestation: early Delivery type: SAB Comments: cytotec at home # 4 Delivery date: 03/25/2016 Weeks Gestation: 37 Delivery type: Anesthesia type: epidural Delivery location: 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 Patient has been counseled to quit. Infection History Hx of STD: none HIV Risk Eval: low risk Hepatitis B Risk Eval: low risk Personal hx. of genital herpes: yes Partner hx. of genital herpes: no Rash, Viral, or Febrile illness since last LMP? no Varicella/Chicken Pox Status: Previous Disease Genetic History ADVANCED MATERNAL AGE Congenital Heart Defect: Mom: no Dad: no Oralia Disease: Mom: no Dad: no Thalassemia Mom: no Dad: no Neural Tube Defect Mom: no Dad: no Down's Syndrome Mom: no Dad: no Vinicio-Sachs Mom: no Dad: no Sickle Cell Disease/Trait Mom: no Dad: no Hemophilia Mom: no Dad: no Muscular Dystrophy Mom: no Dad: no Cystic Fibrosis Mom: no Dad: no Chidi Chorea Mom: no Dad: no Mental Retardation Mom: no Dad: no Fragile X Mom: no Dad: no Other Genetic/Chromosomal Disorder Mom: no Dad: no Child w/other defect Mom: no Dad: no Enviromental Exposures Xray Exposure: no Medication, drug, or alcohol use since LMP: no Chemical/Other Exposure: no Exposure to Cat Liter: no Hx of Parvovirus (Fifth Disease): no Occupational Exposure to Children: none Active Medications (reviewed today): LABETALOL HCL 300 MG ORAL TABS (LABETALOL HCL) () one po bid PRE- TABS ( [id number]) T1 PO QD Current Allergies (reviewed today): No known allergies Objective - Vital Signs Latest vital signs: Vital Signs Temp Pulse Resp BP BP Pulse Ox 05/22/19 22:19 98 H 194/107 05/22/19 22:17 93 H 194/105 05/22/19 22:16 93 H 194/105 05/22/19 22:08 90 188/102 05/22/19 22:04 18 05/22/19 21:50 88 198/101 05/22/19 21:45 94 H 187/100 05/22/19 21:43 94 H 187/100 05/22/19 21:20 92 H 203/118 05/22/19 20:55 95 H 203/111 05/22/19 20:54 93 H 210/110 05/22/19 20:47 98.1 F 93 H 20 175/103 05/22/19 20:46 93 H 175/103 05/22/19 20:42 86 204/119 05/22/19 20:38 20 05/22/19 20:20 86 204/119 05/22/19 19:49 92 H 194/112 05/22/19 19:23 91 H 181/104 05/22/19 18:49 87 170/99 05/22/19 18:22 86 155/92 05/22/19 18:20 87 167/93 05/22/19 17:45 98.0 F 80 18 130/82 100 05/22/19 17:30 84 14 129/86 100 05/22/19 17:15 88 16 137/87 100 05/22/19 17:00 70 22 132/94 100 05/22/19 16:50 71 127/84 99 05/22/19 16:45 83 16 123/89 99 05/22/19 16:40 98.0 F 74 17 129/65 99 05/22/19 14:39 90 157/85 05/22/19 14:34 91 H 156/110 05/22/19 14:16 93 H 159/78 05/22/19 14:02 90 182/104 05/22/19 13:56 93 H 186/111 Intake and Output 05/22/19 05/22/19 05/22/19 06:59 14:59 22:59 Intake Total 675 Output Total 250 Balance 425 Intake: IV 675 Output: Urine 250 Other: Weight 111.13 kg Estimated Blood Loss 500 Patient Weight 05/23/19 06:59 Weight 111.13 kg - Exam Narrative Exam: Alert and appropriately responsive. Breasts: Present: deferred Lungs: Present: Normal air movement - Labs Labs: Abnormal lab results 05/22/19 05/22/19 05/22/19 Range/Units 14:19 14:19 17:25 RBC 3.53 L (3.65-5.03) M/mm3 RDW 15.6 H (13.2-15.2) % Creatinine 0.5 L (0.7-1.2) mg/dL Lactate Dehydrogenase 281 H (91-180) units/L Urine WBC (Auto) 11.0 H (0.0-6.0) /HPF
[2019-05-22] MEDS: ANCEF/NS 1 GM/50 ML 1 GM/50 ML BAG IV SCH (23:00)
[2019-05-23] MEDS: TYLENOL PO SCH ×2 (00:43→07:09)
[2019-05-23] MEDS: TORADOL IV SCH ×2 (04:01→10:03)
[2019-05-23 05:37] LABS: Hematocrit 29.1 % (30.3-42.9); Hemoglobin 9.9 gm/dl (10.1-14.3)
[2019-05-23] MEDS: ANCEF/NS 1 GM/50 ML 1 GM/50 ML BAG IV SCH (07:08)
--- NOTE | 2019-05-23 07:28 | Progress Note ---
Assessment and Plan - Patient Problems (1) delivery delivered Onset Date: ~05/22/19 Current Visit: No Status: Acute Plan to address problem: Pt in very good spirits this AM. Just had a visit with NB in the room.BP 14 0-130/80-70 FF below umb Lochia scant Dressing D&I Marks to BSB draining clear yellow urine MGSO4 @ 2gm/hr Pt w/o complaint of RUFF, blurred vision, chest pain. P: continue pathway Discussed with pt that once she has completed her course of MGSO4 she will be transferred to . consulted. (2) Pre-eclampsia added to pre-existing hypertension Onset Date: ~05/23/19 Current Visit: No Status: Chronic Plan to address problem: MGSO4 x 24 hours for PreE Subjective - Subjective Date of service: 05/23/19 (pt in good spirits) Principal diagnosis: Day #1 s/p repeat section; PreE Patient reports: pain well controlled : doing well Objective - Vital Signs Latest vital signs: Vital Signs Temp Pulse Resp BP BP Pulse Ox 05/23/19 07:19 94 H 96 05/23/19 07:14 93 H 97 05/23/19 07:09 90 18 96 05/23/19 07:04 96 H 98 05/23/19 07:02 84 137/104 05/23/19 06:59 92 H 98 05/23/19 06:54 93 H 98 05/23/19 06:49 92 H 98 05/23/19 06:44 84 98 05/23/19 06:42 87 135/89 135/89 05/23/19 06:39 88 98 05/23/19 06:34 91 H 97 05/23/19 06:29 93 H 98 05/23/19 06:24 89 97 05/23/19 06:22 93 H 131/80 05/23/19 06:19 90 98 05/23/19 06:14 96 H 97 05/23/19 06:09 93 H 96 05/23/19 06:04 92 H 97 05/23/19 06:02 91 H 136/79 136/79 05/23/19 05:59 93 H 97 05/23/19 05:54 90 98 05/23/19 05:49 89 98 05/23/19 05:44 88 97 05/23/19 05:42 92 H 146/83 05/23/19 05:39 91 H 98 05/23/19 05:34 97 H 97 05/23/19 05:29 91 H 96 05/23/19 05:24 94 H 97 05/23/19 05:22 94 H 141/88 05/23/19 05:19 95 H 97 05/23/19 05:14 93 H 98 05/23/19 05:09 93 H 98 05/23/19 05:04 92 H 98 05/23/19 05:02 92 H 132/84 05/23/19 04:59 92 H 99 05/23/19 04:54 94 H 98 05/23/19 04:49 92 H 98 05/23/19 04:44 92 H 98 05/23/19 04:42 91 H 140/83 05/23/19 04:39 92 H 98 05/23/19 04:34 94 H 98 05/23/19 04:29 94 H 99 05/23/19 04:24 94 H 100 05/23/19 04:22 87 133/88 05/23/19 04:19 91 H 99 05/23/19 04:14 93 H 99 05/23/19 04:09 87 98 05/23/19 04:04 85 98 05/23/19 04:02 86 129/79 129/79 05/23/19 04:01 18 05/23/19 03:59 90 98 05/23/19 03:54 91 H 97 05/23/19 03:49 91 H 95 05/23/19 03:44 90 96 05/23/19 03:43 90 94 05/23/19 03:42 90 133/87 133/87 05/23/19 03:39 88 97 05/23/19 03:34 90 97 05/23/19 03:29 87 98 05/23/19 03:24 87 97 05/23/19 03:22 90 136/87 05/23/19 03:19 91 H 98 05/23/19 03:14 91 H 96 05/23/19 03:09 89 96 05/23/19 03:04 89 97 05/23/19 03:02 88 147/83 147/83 05/23/19 02:59 87 98 05/23/19 02:54 90 96 05/23/19 02:49 89 98 05/23/19 02:44 91 H 96 05/23/19 02:42 88 131/78 131/78 05/23/19 02:39 92 H 97 05/23/19 02:34 92 H 96 05/23/19 02:29 90 96 05/23/19 02:24 89 97 05/23/19 02:22 92 H 131/80 05/23/19 02:19 92 H 96 05/23/19 02:14 91 H 97 05/23/19 02:11 91 H 93 05/23/19 02:09 90 96 05/23/19 02:04 94 H 97 05/23/19 02:02 90 123/67 05/23/19 01:59 95 H 98 05/23/19 01:54 94 H 97 05/23/19 01:50 95 H 94 05/23/19 01:49 93 H 98 05/23/19 01:44 92 H 97 05/23/19 01:42 91 H 129/75 05/23/19 01:39 97 H 97 05/23/19 01:34 94 H 94 05/23/19 01:29 93 H 98 05/23/19 01:24 94 H 95 05/23/19 01:22 92 H 148/76 147/76 05/23/19 01:19 90 97 05/23/19 01:14 91 H 96 05/23/19 01:09 90 98 05/23/19 01:04 92 H 96 05/23/19 01:02 92 H 137/90 137/90 05/23/19 00:59 95 H 98 05/23/19 00:54 89 97 05/23/19 00:53 89 123/73 98 05/23/19 00:49 92 H 95 05/23/19 00:44 90 96 05/23/19 00:43 18 05/23/19 00:42 92 H 123/73 138/73 05/23/19 00:39 95 H 95 05/23/19 00:34 93 H 98 05/23/19 00:29 89 97 05/23/19 00:24 91 H 98 05/23/19 00:22 94 H 138/73 05/23/19 00:19 92 H 98 05/23/19 00:14 92 H 96 05/23/19 00:09 92 H 97 05/23/19 00:04 93 H 98 05/23/19 00:02 90 137/91 05/22/19 23:59 95 H 99 05/22/19 23:54 96 H 98 05/22/19 23:49 95 H 98 05/22/19 23:44 98 H 97 05/22/19 23:42 93 H 148/87 148/87 98 05/22/19 23:39 96 H 97 05/22/19 23:37 94 H 159/97 05/22/19 23:36 93 H 159/97 05/22/19 23:34 90 98 05/22/19 23:29 96 H 98 05/22/19 23:24 95 H 98 05/22/19 23:22 92 H 161/100 05/22/19 23:19 95 H 98 05/22/19 23:14 91 H 97 05/22/19 23:09 91 H 98 05/22/19 23:04 93 H 98 05/22/19 23:02 92 H 165/96 05/22/19 22:59 92 H 98 05/22/19 22:58 92 H 176/98 05/22/19 22:54 89 98 05/22/19 22:49 92 H 97 05/22/19 22:44 92 H 98 05/22/19 22:42 93 H 161/100 05/22/19 22:39 91 H 97 05/22/19 22:34 100 H 99 05/22/19 22:30 90 169/93 97 05/22/19 22:29 92 H 169/93 98 05/22/19 22:20 97.6 F 98 H 194/107 97 05/22/19 22:19 98 H 194/107 05/22/19 22:17 93 H 194/105 05/22/19 22:16 93 H 194/105 05/22/19 22:08 90 188/102 05/22/19 22:04 18 05/22/19 21:50 88 198/101 05/22/19 21:45 94 H 187/100 05/22/19 21:43 94 H 187/100 05/22/19 21:20 92 H 203/118 05/22/19 20:55 95 H 203/111 05/22/19 20:54 93 H 210/110 05/22/19 20:47 98.1 F 93 H 20 175/103 05/22/19 20:46 93 H 175/103 05/22/19 20:42 86 204/119 05/22/19 20:38 20 05/22/19 20:20 86 204/119 05/22/19 19:49 92 H 194/112 05/22/19 19:23 91 H 181/104 05/22/19 18:49 87 170/99 05/22/19 18:22 86 155/92 05/22/19 18:20 87 167/93 05/22/19 17:45 98.0 F 80 18 130/82 100 05/22/19 17:30 84 14 129/86 100 05/22/19 17:15 88 16 137/87 100 05/22/19 17:00 70 22 132/94 100 05/22/19 16:50 71 127/84 99 05/22/19 16:45 83 16 123/89 99 05/22/19 16:40 98.0 F 74 17 129/65 99 05/22/19 14:39 90 157/85 05/22/19 14:34 91 H 156/110 05/22/19 14:16 93 H 159/78 05/22/19 14:02 90 182/104 05/22/19 13:56 93 H 186/111 Intake and Output 05/22/19 05/23/19 05/23/19 22:59 06:59 14:59 Intake Total 675 50 Output Total 250 1150 Balance 425 -1100 Intake: IV 675 50 ANCEF/NS 1 GM/50 ML 1 gm 50 In 50 ml @ 100 mls/hr IV Q8H [facility] Rx#:[id number] Output: Urine 250 1150 Indwelling Catheter 1150 Other: Total, Output Amount 1150 Estimated Blood Loss 500 - Exam Breasts: Present: normal Cardiovascular: Present: Regular rate Lungs: Present: Clear to auscultation Abdomen: Present: normal appearance, soft, normal bowel sounds Uterus: Present: normal Extremities: Present: normal, edema Deep Tendon Reflex Grade: Normal +2 (SCDs on) Incision: Present: normal, dry, intact, dressed (to be removed later today) - Labs Labs: Abnormal lab results 05/22/19 05/22/1905/22/19 Range/Units 14:19 14:19 17:25 RBC 3.53 L (3.65-5.03) M/mm3 Hgb (10.1-14.3) gm/dl Hct (30.3-42.9) % RDW 15.6 H (13.2-15.2) % Creatinine 0.5 L (0.7-1.2) mg/dL Magnesium (1.7-2.3) mg/dL Lactate Dehydrogenase 281 H (91-180) units/L Urine WBC (Auto) 11.0 H (0.0-6.0) /HPF 05/22/19 05/23/19 05/23/19 Range/Units 23:08 04:59 04:59 RBC (3.65-5.03) M/mm3 Hgb 9.9 L (10.1-14.3) gm/dl Hct 29.1 L (30.3-42.9) % RDW (13.2-15.2) % Creatinine (0.7-1.2) mg/dL Magnesium 3.80 H 4.50 H (1.7-2.3) mg/dL Lactate Dehydrogenase (91-180) units/L Urine WBC (Auto) (0.0-6.0) /HPF
[2019-05-23] MEDS ORDERED: PROCARDIA XL PO SCH (10:00)
[2019-05-23] MEDS: NORMODYNE PO SCH ×2 (10:03→22:06)
[2019-05-23] MEDS: PERCOCET 5/325 PO PRN ×3 (12:32→23:12)
[2019-05-23] MEDS ORDERED: BOOSTRIX IM ONE (16:46)
[2019-05-23] MEDS: IBUPROFEN PO PRN ×2 (17:09→23:13)
[2019-05-23] MEDS: APRESOLINE IV PRN (18:04)
--- NOTE | 2019-05-23 19:08 | Event Note ---
Date: 05/23/19 (MGSO4 off; moved to M/B) No c/o voiced Anxious to go to M/B to be with NB. VSS Orders in EMR
[2019-05-23] MEDS: MILK OF MAGNESIA PO PRN (22:06)
[2019-05-24] MEDS: IBUPROFEN PO PRN ×3 (05:16→17:19)
[2019-05-24] MEDS: PERCOCET 5/325 PO PRN (05:17)
--- NOTE | 2019-05-24 09:42 | Discharge Summary ---
Providers - Providers Date of Admission: 05/22/19 13:40 Attending physician: DORCAS CARRILLO 05/22/19 16:42 Consult to [employer] Winder [CONS] Routine Reason For Exam: Primary care physician: CONNIE LEDESMA Hospitalization Disposition: DC-[id number] STILL A PATIENT Plan - Discharge Medications Prescriptions: Ibuprofen [Motrin 800 MG tab] 800 mg PO TID PRN #30 tablet PRN Reason: Pain oxyCODONE /ACETAMINOPHEN [Percocet 5/325 mg] 1 - 2 tab PO Q4HR PRN #20 tablet PRN Reason: Pain - Provider Discharge Summary Additional instructions: [] Smoking cessation referral if applicable(refer to patient education folder for contact #) [] Refer to [facility]'s [facility] Booklet Call your doctor immediately for: * Fever > 100.5 * Heavy vaginal bleeding ( >1 pad per hour) * Severe persistent headache * Shortness of breath * Reddened, hot, painful area to leg or breast * Drainage or odor from incision. * Keep incision clean and dry at all times and follow doctor's instructions regarding bathing/showering - Follow up plan Follow up: CONNIE LEDESMA MD [Primary Care Provider] - 7 Days
--- NOTE | 2019-05-24 10:53 | Progress Note ---
Assessment and Plan - Patient Problems (1) Maternal care due to low transverse uterine scar from previous delivery Current Visit: Yes Status: Acute (2) delivery delivered Onset Date: ~05/22/19 Current Visit: No Status: Acute Plan to address problem: -routine post op care -anticipate d/c home in the am (3) Pre-eclampsia added to pre-existing hypertension Onset Date: ~05/23/19 Current Visit: No Status: Chronic Plan to address problem: -bps are stable -cont oral meds -s/o 24hr magnesium sulfate Subjective - Subjective Date of service: 05/24/19 Principal diagnosis: Day #2 s/p repeat section; PreE Interval history: Pt doing well but is not comfortable with breast feeding at this time and does not desire to be d/c home. She has no c/o and her pain is well controlled. She is tolerating a regular diet. Patient reports: appetite normal, voiding normally, pain well controlled, flatus, ambulating normally, no dizzy ambulation, no bowel movement : doing well, nursing well Objective - Vital Signs Latest vital signs: Vital Signs Temp Pulse Resp BP BP Pulse Ox 05/24/19 07:51 98.7 F 79 15 141/41 97 05/24/19 07:40 98.3 F 87 22 136/88 100 05/23/19 23:48 92 H 146/94 100 05/23/19 22:06 92 H 147/87 05/23/19 20:55 68 100 05/23/19 20:33 98.6 F 20 137/77 05/23/19 18:04 88 152/98 05/23/19 17:34 97.9 F 82 18 155/101 100 05/23/19 16:59 83 97 05/23/19 16:54 83 98 05/23/19 16:49 84 99 05/23/19 16:47 80 143/83 05/23/19 16:44 83 98 05/23/19 16:39 85 98 05/23/19 16:34 82 98 05/23/19 16:29 79 99 05/23/19 16:26 84 93 05/23/19 16:24 83 98 05/23/19 16:19 95 H 98 05/23/19 16:14 85 98 05/23/19 16:13 88 94 05/23/19 16:09 87 96 05/23/19 16:08 94 H 86 05/23/19 16:04 89 99 07 15:59 88 97 05/23/19 15:54 91 H 97 05/23/19 15:49 93 H 97 05/23/19 15:47 90 171/90 05/23/19 15:44 94 H 98 05/23/19 15:39 92 H 98 05/23/19 15:34 92 H 98 05/23/19 15:29 95 H 96 05/23/19 15:24 93 H 95 05/23/19 15:19 92 H 98 05/23/19 15:14 94 H 96 05/23/19 15:09 92 H 97 05/23/19 15:04 96 H 97 05/23/19 14:59 98 H 98 05/23/19 14:54 90 98 05/23/19 14:49 92 H 98 05/23/19 14:47 90 135/87 05/23/19 14:44 86 98 05/23/19 14:39 91 H 97 05/23/19 14:34 91 H 98 05/23/19 14:29 92 H 98 05/23/19 14:24 89 98 05/23/19 14:19 92 H 98 05/23/19 14:14 93 H 98 05/23/19 14:09 90 97 05/23/19 14:04 93 H 98 05/23/19 13:59 85 96 05/23/19 13:54 91 H 98 05/23/19 13:49 93 H 98 05/23/19 13:47 85 137/91 05/23/19 13:44 89 98 05/23/19 13:39 91 H 98 05/23/19 13:34 91 H 98 05/23/19 13:29 97 H 96 05/23/19 13:24 93 H 98 05/23/19 13:19 94 H 98 05/23/19 13:14 97 H 96 05/23/19 13:10 98 H 93 05/23/19 13:09 95 H 97 05/23/19 13:04 88 97 05/23/19 12:59 90 97 05/23/19 12:54 90 97 05/23/19 12:49 94 H 97 05/23/19 12:47 89 128/78 07/03/19 12:44 91 H 97 05/23/19 12:39 92 H 98 05/23/19 12:34 94 H 98 05/23/19 12:29 95 H 98 05/23/19 12:24 96 H 97 05/23/19 12:19 95 H 97 05/23/19 12:14 100 H 97 05/23/19 12:09 94 H 98 05/23/19 12:04 93 H 98 05/23/19 11:59 96 H 98 05/23/19 11:54 93 H 97 05/23/19 11:49 94 H 98 05/23/19 11:47 90 136/85 05/23/19 11:44 93 H 97 05/23/19 11:39 92 H 97 05/23/19 11:34 91 H 97 05/23/19 11:29 88 98 05/23/19 11:24 97 H 97 05/23/19 11:19 93 H 98 05/23/19 11:14 92 H 98 05/23/19 11:09 90 97 05/23/19 11:04 92 H 97 05/23/19 10:59 95 H 97 05/23/19 10:54 91 H 96 05/23/19 10:49 94 H 98 05/23/19 10:47 90 136/79 Intake and Output 05/23/19 05/24/19 05/24/19 22:59 06:59 14:59 Intake Total 1240 240 240 Output Total 800 Balance 440 240 240 Intake: IV 1000 Lactated Ringers 1,000 ml 1000 @ 125 mls/hr IV DIRECT ERNESTO Rx#:[id number] Oral 240 240 240 Output: Urine 800 Indwelling Catheter 800 Other: Total, Intake Amount 240 240 240 Total, Output Amount 800 # Voids Void 1 1 - Exam Breasts: Present: normal Cardiovascular: Present: Normal S1, Normal S2 Lungs: Present: Clear to auscultation, Normal air movement Abdomen: Present: normal appearance, soft, normal bowel sounds. Absent: distention, tenderness, guarding Uterus: Present: normal, firm, fundal height below umbilicus. Absent: bogginess, tenderness Extremities: Present: normal, edema (2+ bilateally). Absent: tenderness Deep Tendon Reflex Grade: Normal +2 Incision: Present: normal, dry, intact (steristrips in place) - Labs Labs: Abnormal lab results 05/23/19 Range/Units 14:05 Magnesium 5.20 H (1.7-2.3) mg/dL
[2019-05-24] MEDS: NORMODYNE PO SCH ×2 (10:57→22:05)
[2019-05-25] MEDS: IBUPROFEN PO PRN ×2 (01:24→08:07)
--- NOTE | 2019-05-25 07:26 | Discharge Summary ---
Providers - Providers Date of Admission: 05/22/19 13:40 Date of discharge: 05/25/19 (pt agrees to d/c) Attending physician: DORCAS CARRILLO 05/22/19 16:42 Consult to Nurse Licensed Practical [CONS] Routine Reason For Exam: Primary care physician: CONNIE LEDESMA Hospitalization Reason for admission: section, IUP at term Procedure: repeat low transverse Episiotomy: none Laceration: none Incision: normal, dry, intact Other procedures: none complications: none Discharge diagnosis: IUP at term delivered baby: female Hospital course: uncomplicated repeat section Pt resting and caring for NB. VSS FF below umb Lochia scant Incision D&I H&H stable No s/sx of anemia Doing well s/p repeat c/s P: d/c today with instructions RTO 1 week postop care. Condition at discharge: Good Disposition: DC- TO HOME OR SELFCARE - Discharge Diagnoses (1) delivery delivered Status: Acute Comment: f/u in office one week (2) Pre-eclampsia added to pre-existing hypertension Status: Chronic Comment: continue Labetalol f/u in office one week Plan - Discharge Medications Prescriptions: Ibuprofen [Motrin 800 MG tab] 800 mg PO TID PRN #30 tablet PRN Reason: Pain oxyCODONE /ACETAMINOPHEN [Percocet 5/325 mg] 1 - 2 tab PO Q4HR PRN #20 tablet PRN Reason: Pain - Provider Discharge Summary Activity: routine, no sex for 6 weeks, no heavy lifting 4 weeks, no strenuous exercise Diet: routine Instructions: routine Additional instructions: [] Smoking cessation referral if applicable(refer to patient education folder for contact #) [] Refer to [facility] Booklet Call your doctor immediately for: * Fever > 100.5 * Heavy vaginal bleeding ( >1 pad per hour) * Severe persistent headache * Shortness of breath * Reddened, hot, painful area to leg or breast * Drainage or odor from incision. * Keep incision clean and dry at all times and follow doctor's instructions regarding bathing/showering - Follow up plan Follow up: CONNIE LEDESMA MD [Primary Care Provider] - 7 Days (Congratulations! Please call [phone] to schedule your postoperative visit in one week. Continue medications as prescribed. Call with headache, blurred vision, chest pain. Call with any concerns.)
[2019-05-25] MEDS: NORMODYNE PO SCH (09:54)
[2019-05-25] MEDS: PERCOCET 5/325 PO PRN (09:54)
[2019-05-25 12:44] VITALS: BP 151/93
[2019-05-25] MEDS: MILK OF MAGNESIA PO PRN (13:33)
== END 2019-05-25 14:45 | disposition home or self-care (01) | DRG 765 ==
LOC: LD 13:40 → OB 05-23 17:39
PROVIDERS: ADMIT Obstetrics & Gynecology; ATTEND Obstetrics & Gynecology
PROC: 10D00Z1 Extraction of Products of Conception, Low, Open Approach (ICD-10-PCS; principal; 2019-05-22)
PROC: 3E0234Z Introduction of Serum, Toxoid and Vaccine into Muscle, Percutaneous Approach (ICD-10-PCS; 2019-05-23)
DX: O11.4 Pre-existing hypertension with pre-eclampsia, complicating childbirth (principal); O36.5930 Maternal care for other known or suspected poor fetal growth, third trimester, not applicable or unspecified; N73.6 Female pelvic peritoneal adhesions (postinfective); O99.89 Other specified diseases and conditions complicating pregnancy, childbirth and the puerperium; Z3A.38 38 weeks gestation of pregnancy; Z37.0 Single live birth; Z23 Encounter for immunization; Z87.891 Personal history of nicotine dependence
CPT/HCPCS: 36415; 81001; 82565; 83615; 83735; 84450; 84460; 84550; 85014; 85018; 85027; 86850; 86900; 86901; 87086; G0378; C1765; C9250; J0360; J0690; J1170; J1885; J2250; J2270; J2405; J2590; J2765; J3010; J3475; J7120; J7121; Q0169